=== PATIENT | female | born 1960 | race Two or more races ===

== ENCOUNTER 2017-08-12 12:08 | Emergency (ER) | payer OTHER ==
[~2017-08-12] VITALS: Ht 157.5 cm; Wt 63.5 kg
[~2017-08-12 12:08] MED LIST: ADULT ASPIRIN81 MG; ATACAND4 MG PO; ATIVAN1 M1; ATORVASTATIN CA40 MG; AVALIDE 150-12.1 TA1; CIPRO500 MG PO; CLOPIDOGREL BIS75 MG; CYCLOBENZAPRINE10 MG; GLIMEPIRIDE4 MG; GLUMETZA1000 MG; LOSARTAN-HCTZ1 EAC1; LYRICA100 MG; METHYLPREDNISOLO4 MG; MOTRIN800 MG PO; NAPROXEN500 MG; PREDNISOL5 ML; SIMVASTATIN40 MG; TOPROL XL25 M1; ULTRACET PO; WELLBUTRIN SR100 MG
== END 2017-08-12 14:59 | disposition home or self-care (01) ==
LOC: ER 12:08
DX: M62.838 Other muscle spasm (principal); M79.7 Fibromyalgia; M54.89 Other dorsalgia

== ENCOUNTER 2017-10-16 08:59 | Emergency (ER) | payer OTHER ==
[~2017-10-16] VITALS: Ht 157.5 cm; Wt 63.5 kg
== END 2017-10-16 16:07 | disposition home or self-care (01) ==
LOC: ER 08:59
DX: K57.90 Diverticulosis of intestine, part unspecified, without perforation or abscess without bleeding (principal); R10.813 Right lower quadrant abdominal tenderness

== ENCOUNTER 2020-06-25 08:32 | Outpatient (CLI) | payer OTHER | END 2020-06-25 08:37 | disposition home or self-care (01) | LOC: RX STUDY 08:32 | PROVIDERS: ATTEND Internal Medicine Gastroenterology | DX: R13.12 Dysphagia, oropharyngeal phase (principal); T18.198A Other foreign object in esophagus causing other injury, initial encounter; Y99.8 Other external cause status ==